=== PATIENT | male | born 1965 | race Caucasian/White ===

== ENCOUNTER 2024-11-15 04:17 | Emergency (ER) | payer BC ==
[2024-11-15 04:23] VITALS: BMI 24.4
[2024-11-15] MEDS ORDERED: HEPARIN NA (PORCINE) 5,000 UNITS/ML 1ML VIAL IVPUSH PRN ×2 (04:41)
[2024-11-15] MEDS ORDERED: ASPIRIN 325 MG TABLET ONE (04:47)
[2024-11-15] MEDS ORDERED: HEPARIN NA (PORCINE) 5,000 UNITS/ML 1ML VIAL ONE (04:48)
[2024-11-15] MEDS ORDERED: HEPARIN INFUSION - 25,000 UNITS/500 ML INFUS.BAG IVPB ONE ×2 (04:49→04:50)
[2024-11-15] MEDS: ASPIRIN 325 MG TABLET PO ONE (04:51)
[2024-11-15] MEDS: HEPARIN NA (PORCINE) 5,000 UNITS/ML 1ML VIAL IVPUSH ONE (04:51)
[2024-11-15] MEDS ORDERED: TICAGRELOR 90 MG TABLET PO ONE ×2 (04:51→04:55)
[2024-11-15] MEDS: HEPARIN INFUSION - 25,000 UNITS/500 ML INFUS.BAG IVPB SCH (04:55)
[2024-11-15] MEDS: TICAGRELOR 60 MG TABLET PO ONE (04:55)
[2024-11-15] MEDS ORDERED: morphine SULFATE 4 MG/ML VIAL ONE (05:29)
[2024-11-15 05:33] LABS: BASO % 0.3 % (0-2.0); EOS % 0.1 % (0-4.5); HEMATOCRIT 54.7 % (35.4-49); HEMOGLOBIN 17.7 GM/dL (11.7-16.9); LYMPH % 10.5 % (8-40); MCHC 32.4 g/dl (32.0-35.9); MEAN CELL VOLUME 92.6 fl (80-96); MEAN PLT VOLUME 9.1 fl (7.5-11.1); MONO % 4.5 % (3.8-10.2); NEUT % 84.6 % (42.8-82.8); PLATELET COUNT 283 10^3/uL (134-434); RBC 5.91 M/mm3 (4.00-5.60); RDW 14.7 % (11.9-15.9); WHITE BLOOD COUNT 13.2 K/mm3 (4.0-10.0)
[2024-11-15] MEDS: morphine CARPU-JECT 4 MG/1 ML DISP.SYRIN IVPUSH ONE (05:33)
[2024-11-15 05:34] VITALS: RESP 18
[2024-11-15 05:35] VITALS: TEMP 98.1
[2024-11-15 05:38] VITALS: BP 110/61; PULSE 75
[2024-11-15 05:46] LABS: POTASSIUM 5.9 mmol/L (3.5-5.1)
[2024-11-15 05:48] LABS: ALBUMIN 3.5 g/dl (3.4-5.0); BLOOD UREA NITROGEN 15.7 mg/dL (7-18); CALCIUM 9.9 mg/dL (8.5-10.1); MAGNESIUM 2.1 mg/dL (1.8-2.4)
[2024-11-15 05:51] LABS: CREATININE 1.4 mg/dL (0.55-1.3)
[2024-11-15 05:53] LABS: BILIRUBIN,TOTAL 0.9 mg/dL (0.2-1); TOT PROT 7.5 g/dl (6.4-8.2)
[2024-11-15 12:39] LABS: HIV INTERPRETATION NEGATIVE (NEGATIVE)
== END 2024-11-15 05:45 | disposition short-term general hospital (02) ==
LOC: JER 04:17
PROC: 3E033GC Introduction of Other Therapeutic Substance into Peripheral Vein, Percutaneous Approach (ICD-10-PCS; principal; 2024-11-15)
DX: I21.3 ST elevation (STEMI) myocardial infarction of unspecified site (principal); R07.2 Precordial pain
CPT/HCPCS: 36415; 80053; 83735; 84484; 85025; 86803; 87389; 93005; 93010; 99291; J1644